=== PATIENT | male | born 1960 | race Caucasian/White ===

== ENCOUNTER → 2021-09-21 10:04 | Outpatient (BNVA) | payer BC, SELFPAY | PROVIDERS: Visit Provider Family Medicine | DX: E78.2 Mixed hyperlipidemia (principal); I10 Essential (primary) hypertension | CPT/HCPCS: 80053; 80061 ==

== ENCOUNTER → 2022-07-18 09:05 | Outpatient (BNVA) | payer BC, OTHER, SELFPAY | PROVIDERS: Visit Provider Family Medicine | DX: I10 Essential (primary) hypertension (principal); E78.5 Hyperlipidemia, unspecified; E78.2 Mixed hyperlipidemia; Z12.5 Encounter for screening for malignant neoplasm of prostate | CPT/HCPCS: 80053; 80061; 84153 ==

== ENCOUNTER → 2022-08-16 15:14 | Outpatient (BNVA) | payer BC, OTHER, SELFPAY | PROVIDERS: PCP Family Medicine; Visit Provider Emergency Medicine | DX: R11.0 Nausea (principal); K52.9 Noninfective gastroenteritis and colitis, unspecified; R68.89 Other general symptoms and signs; Z20.822 Contact with and (suspected) exposure to COVID-19 | CPT/HCPCS: 87400; 87426 ==

== ENCOUNTER → 2022-09-25 08:56 | Outpatient (BNVA) | payer BC, OTHER, SELFPAY | PROVIDERS: PCP Family Medicine; Visit Provider Family Medicine | DX: M25.562 Pain in left knee (principal); M25.561 Pain in right knee; M25.861 Other specified joint disorders, right knee | CPT/HCPCS: 73562 ==

== ENCOUNTER 2022-12-26 06:15 | Day surgery (SDC) | payer OTHER, BC, SELFPAY ==
[2022-12-24 08:59] VITALS: BMI 33.2
[2022-12-26 06:40] VITALS: BP 160/84; PULSE 68; RESP 16; TEMP 36.1; O2SAT 97
[2022-12-26] MEDS: sodium chloride 0.9% 1,000 ML 30 ML IV (06:47)
--- NOTE | 2022-12-26 07:51 | P.ANESASSM_ITS ---
Pre-Anesthetic Assessment Height/Weight: Height 1.75 m Weight 102.058 kg Temp Pulse Resp BP Pulse Ox O2 Del Method 97.0 F L 68 16 160/84 97 12/26/22 06:40 12/26/22 06:40 12/26/22 06:40 12/26/22 06:40 12/26/22 06:40 12/26/22 06:40 Preop Diagnosis: Hx polyps Operation Date: 12/26/22 08:00 Proposed Procedures p [id number] COlonoscopy D12.6(Not Applicable) - John Lopes, DO Was Beta Tremaine taken within 24 hours: N/A Was Clonidine taken within 24 hours: N/A Last intake: Intake Last Liquid Date 12/25/22 Last Liquid Time 23:20 Last Solid Date 12/24/22 Last Solid Time 23:30 Social No alcohol and No tobacco Former smoker Exam alert, oriented x 3, clear to auscultation bilaterally and regular rate & rhythm Airway Submandibular: within normal limits Cervical ROM: within normal limits Mallampati: Class II Dentition: full History/ROS No significant history except as noted and No significant complaints Pulmonary None reported CV/HEM Hypertension None reported Hepatic None reported GI None reported Metabolic None reported Musc/skel None reported Neuropsych None reported Anesthetic Plan ASA status: 2 Anesthesia: Anesthesia Evaluation and MAC Risk of > 500 ml blood loss (7ml/kg in children): No Medications/Allergies Home Medications Medication Instructions Recorded Confirmed Last Taken Type atorvastatin 20 mg tablet 20 mg PO DAILY 90 days #90 tabs 07/18/22 12/24/22 12/25/22 Rx diclofenac sodium 1 % topical gel 4 g topical QID #100 grams 09/25/22 12/24/22 12/24/22 Rx (Arthritis Pain (diclofenac)) albuterol sulfate 90 mcg/actuation 2 puff inhalation QID PRN 10/23/22 12/24/22 1 Month Ago Rx aerosol inhaler (ProAir HFA) shortness of breath or wheezing 30 ~11/23/22 days #18 grams diclofenac sodium 75 mg 75 mg PO BID 90 days #180 tabs 12/02/22 12/24/22 12/24/22 Rx tablet,delayed release lisinopril 20 mg tablet 20 mg PO DAILY 90 days #90 tabs 12/02/22 12/24/22 0 12/25/22 Rx Allergies Allergy/AdvReac Type Severity Reaction Status Date / Time acetaminophen [From Vicodin] AdvReac Mild ADR-Nausea Verified 12/26/22 06:39 hydrocodone [From Vicodin] AdvReac Mild ADR-Nausea Verified 12/26/22 06:39 Current Medications Generic Name Dose Route Start Last Admin Trade Name Freq PRN Reason Stop Dose Admin Sodium Chloride 1,000 mls @ 30 mls/hr 12/26/22 06:45 12/26/22 06:47 Sodium Chloride 0.9% IV 12/27/22 06:44 30 mls/hr .Q24H JAY Administration PFSH Anesthesia Medical History Benign hypertension History of tobacco use Hyperlipidemia Tubular adenoma of colon Surgical History History of colonoscopy with polypectomy Family History Other Hypertension Social History Smoking and tobacco status: never smoked Alcohol intake: never Current gender identity: Male Data Anesthesia Cardiac Studies: No Data to Display
--- NOTE | 2022-12-26 07:58 | W.PM.OPSUD ---
Surgery/Procedure H&P Update DATE OF PROCEDURE: December 26, 2022 DATE H&P PERFORMED: 11/26/22 H&P UPDATE INFORMATION: I have reviewed H&P completed within last 30 days, I have examined patient prior to procedure and No changes to prior documentation PREOP DIAGNOSIS: Hx polyps PLANNED PROCEDURE: Operation Date: 12/26/22 08:00 Proposed Procedures p [id number] COlonoscopy D12.6(Not Applicable) - John Lopes, DO
[2022-12-26 08:20] VITALS: BP 130/80; PULSE 78; RESP 16; TEMP 36.2; O2SAT 97
[2022-12-26 08:34] VITALS: BP 124/86; PULSE 75; RESP 18; O2SAT 98
--- NOTE | 2022-12-26 13:25 | ANE.PACU2 ---
Inpatient post-anesthesia follow up: Airway intact: Yes Vital signs: Temperature 97.2 F Pulse Rate 75 Respiratory Rate 18 Blood Pressure 124/86 Pulse Oximetry 98 Oxygen Delivery Me thod Room Air Oxygen Flow Rate 5 Fraction of Inspir ed Oxygen Hydration adequate: Yes Nausea and vomiting: No Pain level: 1 Mental status: Baseline
== END 2022-12-26 08:50 | disposition home or self-care (01) ==
PROVIDERS: PCP Family Medicine; Visit Provider Surgery
PROC: 0DJD8ZZ Inspection of Lower Intestinal Tract, Via Natural or Artificial Opening Endoscopic (ICD-10-PCS; CPT 45378; principal; 2022-12-26 08:00)
DX: Z86.010 Personal history of colon polyps (principal); K64.8 Other hemorrhoids; D12.8 Benign neoplasm of rectum; Z87.891 Personal history of nicotine dependence; I10 Essential (primary) hypertension; E78.5 Hyperlipidemia, unspecified
CPT/HCPCS: 45385; 88305; J2704; J3490; J7030

== ENCOUNTER → 2023-03-06 10:15 | Outpatient (BNVA) | payer OTHER, BC, SELFPAY | PROVIDERS: PCP Family Medicine; Visit Provider Family Medicine | DX: I10 Essential (primary) hypertension (principal) | CPT/HCPCS: 80053 ==

== ENCOUNTER → 2023-03-10 16:41 | Outpatient (BNVA) | payer OTHER, BC, SELFPAY | PROVIDERS: PCP Family Medicine; Visit Provider Family Medicine | DX: I10 Essential (primary) hypertension (principal) | CPT/HCPCS: 80053 ==

== ENCOUNTER → 2023-09-15 08:56 | Outpatient (BNVA) | payer OTHER, BC, SELFPAY | PROVIDERS: PCP Family Medicine; Visit Provider Family Medicine | DX: I10 Essential (primary) hypertension (principal); E78.5 Hyperlipidemia, unspecified; Z12.5 Encounter for screening for malignant neoplasm of prostate; R73.9 Hyperglycemia, unspecified; Z13.1 Encounter for screening for diabetes mellitus | CPT/HCPCS: 80053; 80061; 83036; G0103 ==

== ENCOUNTER → 2024-03-24 10:55 | Outpatient (BNVA) | payer OTHER, BC, SELFPAY | PROVIDERS: PCP Family Medicine; Visit Provider Family Medicine | DX: I10 Essential (primary) hypertension (principal); E11.9 Type 2 diabetes mellitus without complications | CPT/HCPCS: 80053; 83036 ==

== ENCOUNTER → 2025-04-04 08:27 | Outpatient (BNVA) | payer BC, SELFPAY | PROVIDERS: PCP Family Medicine; Visit Provider Family Medicine | DX: I10 Essential (primary) hypertension (principal); E78.2 Mixed hyperlipidemia; R73.03 Prediabetes; Z12.5 Encounter for screening for malignant neoplasm of prostate | CPT/HCPCS: 80053; 80061; 83036; G0103 ==

== ENCOUNTER → 2025-10-03 08:44 | Outpatient (BNVA) | payer BC, SELFPAY | PROVIDERS: PCP Family Medicine; Visit Provider Family Medicine | DX: I10 Essential (primary) hypertension (principal); E11.9 Type 2 diabetes mellitus without complications | CPT/HCPCS: 80048; 83036; 83735 ==